=== PATIENT | female | born 1990 | race Caucasian/White ===

== ENCOUNTER 2021-11-17 10:15 | Emergency (ER) | payer BC, OTHER | END 2021-11-17 12:03 | disposition home or self-care (01) | LOC: CSHERS 10:15 | DX: S80.02XA Contusion of left knee, initial encounter (principal); W19.XXXA Unspecified fall, initial encounter ==

== ENCOUNTER 2021-12-02 09:02 | Emergency (ER) | payer BC ==
[2021-12-02] MEDS ORDERED: Boostrix 0.5 ML (Tdap) VIAL ONE (09:20)
[2021-12-02] MEDS ORDERED: HYDROcodone/Acetaminophen 5/325 mg Tablet ONE (10:53)
[2021-12-02] MEDS ORDERED: Lidocaine 1% w/Epinephrine 1:100K 20 ML VIAL ONE (11:17)
== END 2021-12-02 12:04 | disposition home or self-care (01) ==
LOC: CSHERS 09:02
DX: S92.324A Nondisplaced fracture of second metatarsal bone, right foot, initial encounter for closed fracture (principal); S91.311A Laceration without foreign body, right foot, initial encounter; Z23 Encounter for immunization; W20.8XXA Other cause of strike by thrown, projected or falling object, initial encounter; Y99.0 Civilian activity done for income or pay
CPT/HCPCS: 12001; 90471; 90715